=== PATIENT | female | born 1970 | race Caucasian/White ===

== ENCOUNTER 2016-12-15 01:48 | Emergency (ER) | payer SELFPAY ==
[~2016-12-15] VITALS: Ht 170.2 cm; Wt 77.4 kg
[~2016-12-15 01:48] MED LIST: ACCUNE1 IN; CIPRO500 MG OR; CLINDAMYCIN150 MG PO; FLAGYL500 MG OR; FLEXERIL OR; FLEXERIL PO; FLEXERIL10 MG PO; NO HOME MEDS; PHENERGAN SUPP RE; PROMETHAZINE25 MG PO; TORADOL OR; ULTRAM50 MG OR; ZOFRAN ODT8 MG SL; ZOFRAN4 MG/TAB PO
[2016-12-15] MEDS ORDERED: FLEXERIL5 M1 PO (01:59)
[2016-12-15] MEDS ORDERED: LORTAB 10-325 M1 TAB PO (02:52)
[2016-12-15 03:15] VITALS: BP 126/83
== END 2016-12-15 03:16 | disposition home or self-care (01) | DRG 159 ==
LOC: ED 01:48
DX: K08.89 Other specified disorders of teeth and supporting structures (principal); Z98.818 Other dental procedure status

== ENCOUNTER 2017-01-16 21:28 | Emergency (ER) | payer SELFPAY ==
[~2017-01-16] VITALS: Ht 170.2 cm; Wt 75.0 kg
[~2017-01-16 21:28] MED LIST changes: +FLEXERIL5 M1 PO; +LORTAB 10-325 M1 TAB PO
[2017-01-16] MEDS ORDERED: ZOFRAN ODT4 MG PO (21:48)
[2017-01-16] MEDS ORDERED: TORADOL PO (21:48)
[2017-01-16] MEDS ORDERED: FLEXERIL PO (21:48)
[2017-01-16 22:00] VITALS: BP 120/61
== END 2017-01-16 22:30 | disposition home or self-care (01) | DRG 93 ==
LOC: ED 21:28
DX: G89.29 Other chronic pain (principal); F41.9 Anxiety disorder, unspecified; M54.2 Cervicalgia; R11.2 Nausea with vomiting, unspecified; F17.210 Nicotine dependence, cigarettes, uncomplicated

== ENCOUNTER 2017-03-14 21:56 | Emergency (ER) | payer SELFPAY ==
[~2017-03-14] VITALS: Ht 170.2 cm; Wt 77.2 kg
[~2017-03-14 21:56] MED LIST changes: +TORADOL PO; +ZOFRAN ODT4 MG PO
[2017-03-14] MEDS ORDERED: TORADOL PO (23:30)
[2017-03-14] MEDS ORDERED: FLEXERIL PO (23:30)
[2017-03-15 00:01] VITALS: BP 126/74
== END 2017-03-15 00:01 | disposition home or self-care (01) | DRG 93 ==
LOC: ED 21:56
DX: G89.29 Other chronic pain (principal); F41.9 Anxiety disorder, unspecified; M54.2 Cervicalgia; F17.210 Nicotine dependence, cigarettes, uncomplicated

== ENCOUNTER 2017-07-04 06:03 | Emergency (ER) | payer SELFPAY ==
[~2017-07-04] VITALS: Ht 170.2 cm; Wt 75.0 kg
[2017-07-04] MEDS ORDERED: FLEXERIL PO (08:59)
[2017-07-04] MEDS ORDERED: NAPROSYN500 MG PO (08:59)
[2017-07-04 09:00] VITALS: BP 111/75
== END 2017-07-04 09:06 | disposition home or self-care (01) | DRG 552 ==
LOC: ED 06:03
DX: S16.1XXA Strain of muscle, fascia and tendon at neck level, initial encounter (principal)

== ENCOUNTER 2018-05-02 19:37 | Emergency (ER) | payer SELFPAY ==
[~2018-05-02] VITALS: Ht 170.2 cm; Wt 75.5 kg
[~2018-05-02 19:37] MED LIST changes: +NAPROSYN500 MG PO
[2018-05-02 20:18] LABS: INFLUENZA A NONE DETECTED (NONE DETECT); INFLUENZA B NONE DETECTED (NONE DETECT)
[2018-05-02] MEDS ORDERED: ZPAK PO (20:35)
[2018-05-02 20:40] VITALS: BP 120/78
== END 2018-05-02 20:40 | disposition home or self-care (01) | DRG 153 ==
LOC: ED 19:37
PROVIDERS: Emergency Medicine
DX: J02.9 Acute pharyngitis, unspecified (principal); F17.200 Nicotine dependence, unspecified, uncomplicated

== ENCOUNTER 2018-12-16 05:48 | Emergency (ER) | payer SELFPAY ==
[~2018-12-16] VITALS: Ht 170.2 cm; Wt 75.0 kg
[~2018-12-16 05:48] MED LIST changes: +ZPAK PO
[2018-12-16 07:05] VITALS: BP 113/82
== END 2018-12-16 07:09 | disposition home or self-care (01) | DRG 93 ==
LOC: ED 05:48
DX: G89.29 Other chronic pain (principal); M54.2 Cervicalgia; F17.210 Nicotine dependence, cigarettes, uncomplicated

== ENCOUNTER 2019-01-16 20:06 | Emergency (ER) | payer SELFPAY ==
[~2019-01-16] VITALS: Ht 170.2 cm; Wt 76.2 kg
[2019-01-16] MEDS ORDERED: SIMVASTATIN20 MG PO (20:24)
[2019-01-16] MEDS ORDERED: FLEXERIL5 MG PO (20:25)
[2019-01-16] MEDS ORDERED: VOLTAREN - GENE75 MG PO (22:46)
[2019-01-17 00:15] VITALS: BP 130/75
== END 2019-01-17 00:24 | disposition home or self-care (01) | DRG 563 ==
LOC: ED 20:06
DX: S39.012A Strain of muscle, fascia and tendon of lower back, initial encounter (principal); X50.0XXA Overexertion from strenuous movement or load, initial encounter; Y93.89 Activity, other specified; Y92.89 Other specified places as the place of occurrence of the external cause; Y99.0 Civilian activity done for income or pay